=== PATIENT | female | born 1950 | race Caucasian/White ===

== ENCOUNTER 2018-02-27 06:29 | Inpatient (IN) | payer MEDICARE, MEDICAID ==
[~2018-02-27] VITALS: Ht 167.6 cm; Wt 99.0 kg
[2018-02-27] VITALS (8 sets, daily range): BP systolic 133–167; BP diastolic 67–96
[2018-02-27] MEDS ORDERED: FUROSEMIDE 40MG/4ML VIAL IVP ONE (07:15)
[2018-02-27] MEDS ORDERED: ENALAPRIL 2.5MG/2ML VIAL 2ML IV ONE (07:15)
[2018-02-27 07:17] LABS: CHLORIDE 105 mEq/L (98-107)
[2018-02-27 07:18] LABS: BASOPHILS % 0.3 % (0.0-2.0); EOSINOPHILS % 0.8 % (0.0-5.0); HEMATOCRIT. 42.5 % (36.0-48.0); HEMOGLOBIN. 13.8 g/dL (12.0-16.0); LYMPHOCYTES % 20.6 % (20.0-50.0); MEAN CORPUSCULAR HEMOGLOBIN 28.2 pg (28.0-32.0); MEAN CORPUSCULAR VOLUME 86.7 fL (81.0-99.0); MONOCYTES % 6.1 % (2.0-8.0); NEUTROPHILS % 72.2 % (40.0-76.0); PLATELET 315 x1000/uL (130-400); RED CELL DISTRIBUTION WIDTH 14.7 % (11.6-14.6)
[2018-02-27 09:23] LABS: BG BASE EXCESS -1.5 mmol/L (-2.0-2.0); BG BILEVEL POS AIRWAY PRESSURE 15/5; BG CARBOXYHEMOGLOBIN 0.5 % (0.5-1.5); BG DEOXYHEMOGLOBIN 2.9 % (0.0-5.0); BG FRACTION INSPIRED OXYGEN 60; BG HCO3 ACT 22.7 mmol/L (22.0-26.0); BG METHEMOGLOBIN 0.1 % (0.0-1.5); BG OXYGEN SATURATION 97.1 % (92.0-98.5); BG OXYHEMOGLOBIN 96.5 % (94.0-97.0); BG PCO2 36.8 mmHg (35.0-45.0); BG PH 7.408 (7.350-7.450); BG PO2 95.7 mmHg (75.0-100.0); BG SAMPLE SITE RIGHT RADIAL; BG TOTAL HEMOGLOBIN 14.3 g/dL (12.0-18.0); BG VENT MODE MASK - BIPAP; BG VENT RATE 18 set
[2018-02-27] MEDS ORDERED: MORPHINE SULFATE 10 MG/ML CPJ IV PRN (13:00)
[2018-02-27] MEDS ORDERED: MAGNESIUM/ALUMINUM HYDROXIDE/SIMETHICONE 30ML UDC PO PRN (13:00)
[2018-02-27] MEDS ORDERED: DOCUSATE SODIUM 100MG CAPSULE PO PRN (13:00)
[2018-02-27] MEDS ORDERED: CLONIDINE 0.1MG TABLET PO PRN (13:00)
[2018-02-27] MEDS ORDERED: ONDANSETRON HCL 4MG/2ML INJ IV PRN (13:00)
[2018-02-27] MEDS ORDERED: MULT-1146 MT (13:49)
[2018-02-27] MEDS ORDERED: METF-414 PO (13:49)
[2018-02-27] MEDS ORDERED: GARL100T PO (13:49)
[2018-02-27] MEDS ORDERED: BENA40TA9 PO (13:49)
[2018-02-27] MEDS ORDERED: OMEP20TA15 PO (13:49)
[2018-02-27] MEDS ORDERED: CRAN450T10 MT (13:49)
[2018-02-27] MEDS ORDERED: FISH MT (13:49)
[2018-02-27] MEDS: LISINOPRIL 40MG TABLET PO SCH (13:50)
[2018-02-27] MEDS: ENOXAPARIN 30MG/0.3ML SYR SUBCUT SCH ×2 (13:52→21:11)
[2018-02-27] MEDS ORDERED: POTASSIUM CHLORIDE 20MEQ TABLET SR PO SCH (14:00)
[2018-02-27] MEDS ORDERED: FUROSEMIDE 40MG/4ML VIAL IV SCH (14:00)
[2018-02-27] MEDS: ACETAMINOPHEN 325MG TABLET PO PRN ×2 (14:03→21:12)
[2018-02-27] MEDS: OMEPRAZOLE 20MG CAPSULE EXTENDED RELEASE PO SCH (18:20)
[2018-02-27] MEDS: METFORMIN HCL 500MG TABLET PO SCH (18:20)
[2018-02-27] MEDS: FUROSEMIDE 40MG/4ML VIAL IV SCH (20:55)
[2018-02-27] MEDS: POTASSIUM CHLORIDE 20MEQ TABLET SR PO SCH (20:56)
[2018-02-27 21:25] LABS: CREATINE KINASE MB FRACTION 1.7 ng/mL (0.5-3.6)
[2018-02-28] VITALS (12 sets, daily range): BP systolic 109–138; BP diastolic 61–95
[2018-02-28] MEDS: IPRATROPIUM/ALBUTEROL 0.5-3(2.5)MG/3ML NEB HHN SCH ×4 (00:56→20:27)
[2018-02-28] MEDS: FUROSEMIDE 40MG/4ML VIAL IV SCH ×2 (08:12→17:36)
[2018-02-28] MEDS: ENOXAPARIN 30MG/0.3ML SYR SUBCUT SCH ×2 (08:12→20:35)
[2018-02-28] MEDS: POTASSIUM CHLORIDE 20MEQ TABLET SR PO SCH ×2 (08:12→17:37)
[2018-02-28] MEDS: OMEPRAZOLE 20MG CAPSULE EXTENDED RELEASE PO SCH ×2 (08:13→17:37)
[2018-02-28] MEDS: METFORMIN HCL 500MG TABLET PO SCH ×2 (08:13→17:37)
[2018-02-28] MEDS: GUAIFENESIN 600MG ER TABLET PO SCH ×2 (08:14→20:34)
[2018-02-28] MEDS: LISINOPRIL 40MG TABLET PO SCH (08:16)
[2018-02-28 08:47] LABS: BASOPHILS % 0.7 % (0.0-2.0); EOSINOPHILS % 0.2 % (0.0-5.0); HEMATOCRIT. 38.5 % (36.0-48.0); HEMOGLOBIN. 12.8 g/dL (12.0-16.0); MEAN CORPUSCULAR HEMOGLOBIN 28.2 pg (28.0-32.0); MEAN CORPUSCULAR VOLUME 85.1 fL (81.0-99.0); MEAN PLATELET VOLUME 8.9 fl (7.4-10.4); MONOCYTES % 9.3 % (2.0-8.0); NEUTROPHILS % 75.8 % (40.0-76.0); PLATELET 258 x1000/uL (130-400); RED BLOOD CELL COUNT 4.52 mill/uL (4.2-5.4); RED CELL DISTRIBUTION WIDTH 14.4 % (11.6-14.6)
[2018-02-28 08:58] LABS: CHLORIDE 109 mEq/L (98-107)
[2018-02-28 09:07] LABS: LDL CHOLESTEROL 176 mg/dL (5-100)
[2018-02-28 09:08] LABS: HDL CHOLESTEROL 65 mg/dL (40-59)
[2018-02-28] MEDS: ACETAMINOPHEN 325MG TABLET PO PRN ×2 (10:07→17:41)
[2018-02-28] MEDS: ASPIRIN 81MG EC TABLET PO SCH (13:34)
[2018-02-28] MEDS ORDERED: ATORVASTATIN CALCIUM 40MG TABLET PO SCH (21:00)
[2018-03-01] VITALS (9 sets, daily range): BP systolic 99–128; BP diastolic 57–87
[2018-03-01] MEDS: IPRATROPIUM/ALBUTEROL 0.5-3(2.5)MG/3ML NEB HHN SCH ×3 (01:48→14:17)
[2018-03-01 06:16] LABS: BASOPHILS % 0.4 % (0.0-2.0); EOSINOPHILS % 1.3 % (0.0-5.0); HEMATOCRIT. 36.8 % (36.0-48.0); HEMOGLOBIN. 12.6 g/dL (12.0-16.0); LYMPHOCYTES % 19.4 % (20.0-50.0); MEAN CORPUSCULAR HEMOGLOBIN 28.8 pg (28.0-32.0); MEAN CORPUSCULAR VOLUME 84.5 fL (81.0-99.0); MEAN PLATELET VOLUME 9.3 fl (7.4-10.4); MONOCYTES % 10.7 % (2.0-8.0); NEUTROPHILS % 68.2 % (40.0-76.0); PLATELET 267 x1000/uL (130-400); RED BLOOD CELL COUNT 4.35 mill/uL (4.2-5.4); RED CELL DISTRIBUTION WIDTH 14.4 % (11.6-14.6)
[2018-03-01] MEDS: FUROSEMIDE 40MG/4ML VIAL IV SCH (08:20)
[2018-03-01] MEDS: GUAIFENESIN 600MG ER TABLET PO SCH (08:21)
[2018-03-01] MEDS: METFORMIN HCL 500MG TABLET PO SCH (08:21)
[2018-03-01] MEDS: POTASSIUM CHLORIDE 20MEQ TABLET SR PO SCH (08:21)
[2018-03-01] MEDS: OMEPRAZOLE 20MG CAPSULE EXTENDED RELEASE PO SCH (08:21)
[2018-03-01] MEDS: ASPIRIN 81MG EC TABLET PO SCH (08:21)
[2018-03-01] MEDS: ENOXAPARIN 30MG/0.3ML SYR SUBCUT SCH (08:22)
[2018-03-01] MEDS: LISINOPRIL 40MG TABLET PO SCH (08:22)
[2018-03-01] MEDS ORDERED: MORPHINE SULFATE 4 MG/ML CPJ (NOT FOR IM USE) IV PRN (12:07)
[2018-03-01] MEDS ORDERED: THROAT LOZENGES-BENZOCAINE/MENTH/CETYLPYRD CL LOZENGES MM PRN (14:00)
[2018-03-01] MEDS ORDERED: FUROSEMIDE 20MG TABLET PO SCH (21:00)
== END 2018-03-01 18:13 | disposition home or self-care (01) | DRG 291 ==
LOC: ER 06:29 → 5EST 08:06 → EDBEDREQ 08:08 → EDBEDREQTM 08:08 → ENRESERV 09:02
PROVIDERS: ADMIT Hospitalist; ATTEND Hospitalist
PROC: 5A09357 Assistance with Respiratory Ventilation, Less than 24 Consecutive Hours, Continuous Positive Airway Pressure (ICD-10-PCS; principal; 2018-02-27)
PROC: 5A09357 Assistance with Respiratory Ventilation, Less than 24 Consecutive Hours, Continuous Positive Airway Pressure (ICD-10-PCS; 2018-02-28)
DX: I11.0 Hypertensive heart disease with heart failure (principal); J96.00 Acute respiratory failure, unspecified whether with hypoxia or hypercapnia; I50.43 Acute on chronic combined systolic (congestive) and diastolic (congestive) heart failure; E11.65 Type 2 diabetes mellitus with hyperglycemia; E87.6 Hypokalemia; D72.829 Elevated white blood cell count, unspecified; E78.5 Hyperlipidemia, unspecified; I25.10 Atherosclerotic heart disease of native coronary artery without angina pectoris; I44.7 Left bundle-branch block, unspecified; Z79.4 Long term (current) use of insulin; Z85.3 Personal history of malignant neoplasm of breast; Z90.5 Acquired absence of kidney; Z90.710 Acquired absence of both cervix and uterus; Z85.528 Personal history of other malignant neoplasm of kidney; Z87.891 Personal history of nicotine dependence
CPT/HCPCS: 36415; 36600; 71045; 80048; 80061; 82375; 82550; 82553; 82805; 83036; 83880; 84484; 93005; 93306; 93970; 94640; 94660; 99285; J1650; J1940; J3490; J7620